=== PATIENT | male | born 1980 | race Caucasian/White ===

== ENCOUNTER 2024-05-30 14:55 | Emergency (ER) | payer BC ==
[2024-05-30] MEDS: Lidocaine 1% 10 ML MDV INJECT ONE (16:08)
== END 2024-05-30 16:40 | disposition home or self-care (01) ==
LOC: JP.ED 14:55
DX: S61.217A Laceration without foreign body of left little finger without damage to nail, initial encounter (principal); Z88.1 Allergy status to other antibiotic agents; Z79.899 Other long term (current) drug therapy; W22.8XXA Striking against or struck by other objects, initial encounter
CPT/HCPCS: 12002; 99282